=== PATIENT | male | born 1995 | race Caucasian/White ===

== ENCOUNTER 2018-03-26 01:18 | Emergency (ER) | payer BC ==
[~2018-03-26] VITALS: Ht 188 cm; Wt 116.9 kg
[~2018-03-26 01:18] MED LIST: ADDE30TA PO
[2018-03-26 01:25] VITALS: BP 156/92; PULSE 73; RESP 16; TEMP 98.8; O2SAT 100
[2018-03-26] MEDS ORDERED: KETOROLAC TROMETHAMINE 0.5% OPHT SOLN 5 ML BTL EACH EYE ONE (01:45)
[2018-03-26] MEDS ORDERED: TOBRAMYCIN 0.3%/DEXAMETHASONE 0.1% OPHT SUSP 5 ML BTL EACH EYE ONE (01:45)
[2018-03-26] MEDS ORDERED: PROPARACAINE HCL 0.5% OPHT SOLN 15 ML BTL EACH EYE ONE (01:45)
--- NOTE | 2018-03-26 02:00 | PD ---
HPI Chief Complaint: Eye Problems/Injury Time Seen by Provider: 01:36 Travel History International Travel<30 days: No Contact w/Intl Traveler<30days: No Traveled to known affect area: No History of Present Illness HPI 23-year-old male presents today with bilateral eye irritation. Patient states he was sleeping on his couch when he woke up, his eyes were red and irritated. He denies any injury. He denies any itching. He states that they are painful and when he opens them they burn. Mom who is at the bedside states that she went out and bought eye irrigation. The irrigated his eyes copiously before they came here. Was still irritated so they came here. He does give history that he received a note from his landlord that they were going to be spray in his apartment with pesticides. He states that happened this morning. He denies any pulmonary symptoms. He denies any injury to the eye. PFSH Past Medical History ADHD: Yes Diminished Hearing: No Musculoskeletal: Yes (CHRONIC BACK PAIN S/P INJURY X 2 IN THE PAST YEAR) Immunizations Current: Yes Influenza Vaccination: No Past Surgical History Tonsillectomy: Yes Social History Alcohol Use: No Tobacco Use: Yes (2-3 CIGS/DAY) Substance Use: No Allergies-Medications (Allergen,Severity, Reaction): Coded Allergies: No Known Allergies (Unverified Allergy, Unknown, 03/26/18) Reported Meds & Prescriptions Reported Meds & Active Scripts Active No Active Prescriptions or Reported Medications Review of Systems Eyes: Positive: Redness, Pain, Tearing, No: Photophobia, Drainage Physical Exam Narrative GENERAL: Well developed well-nourished male in no acute respiratory distress. SKIN: Focused skin assessment warm/dry. HEAD: Atraumatic. Normocephalic. EYES: Pupils equal and round. No scleral icterus. No true injection that I can appreciate. On fluorescein staining, there was no uptake. No photophobia. No proptosis. ENT: No nasal bleeding or discharge. Mucous membranes pink and moist. NECK: Trachea midline. No JVD. NEUROLOGICAL: Awake and alert. No obvious cranial nerve deficits. Motor grossly within normal limits. Normal speech. Data Data Last Documented VS Vital Signs Date Time Temp Pulse Resp B/P (MAP) Pulse Ox O2 Delivery O2 Flow Rate FiO2 03/26/18 01:25 98.8 73 16 156/92 (113) 100 Orders Orders Proparacaine 0.5% Opth Soln (Alcaine 0.5 (03/26/18 01:45) Ketorolac 0.5% Opth Soln (Acular 0.5% Op (03/26/18 01:45) Tobramycin-Dexameth Opth Susp (Tobradex (03/26/18 01:45) MDM Medical Decision Making Medical Screen Exam Complete: Yes Emergency Medical Condition: Yes Differential Diagnosis Conjunctivitis versus chemical irritant versus corneal abrasion Narrative Course 23-year-old male presents with bilateral eye irritation. Patient has no trauma or denies getting anything in his eyes. Patient did have his apartment sprayed with pesticides this morning. He fell asleep on the couch and when he woke up is when he experiences irritation. The patient was given proparacaine 1 drop to each eye. On fluorescein staining there is no evidence of uptake. He will be discharged with ketorolac and TobraDex drops. He is instructed to use 7 days. He is instructed to follow-up with an drug abuse resistance education officer if irritation continues or gets worse. Diagnosis Primary Impression: Bilateral eye pain with suspected chemical irritant Additional Instructions: Eyedrops 7 days. If condition gets worse or does not go away after 7 days, follow-up with an drug abuse resistance education officer. Ketorolac drops: 1 drop each eye daily. TobraDex drops: 1 drop each eye 4 times daily. Scripts Tobramycin-Dexamethasone Opth Drops (Tobradex Opth Drops) 0.3-0.1 % Susp 1 DROP EACH EYE Q6H for Infection/Inflammation, #1 BOTTLE 0 Refills Prov: Ulisses Cheung MD 03/26/18 Ketorolac Opth Drops (Ketorolac Opth Drops) 0.5% Drops 1 DROP EACH EYE DAILY for Pain/Inflammation, #5 ML 0 Refills Prov: Ulisses Cheung MD 03/26/18 Disposition: 01 DISCHARGE HOME Condition: Stable Ulisses Cheung MD March 26, 2018 02:00
[2018-03-26] MEDS ORDERED: TOBRO EACH EYE (02:01)
[2018-03-26] MEDS ORDERED: KETO0.5S2 EACH EYE (02:01)
== END 2018-03-26 02:14 | disposition home or self-care (01) ==
LOC: PHED 01:18
DX: H57.13 Ocular pain, bilateral (principal); F90.9 Attention-deficit hyperactivity disorder, unspecified type; G89.29 Other chronic pain; M54.9 Dorsalgia, unspecified; F17.210 Nicotine dependence, cigarettes, uncomplicated
CPT/HCPCS: 99283